=== PATIENT | female | born 1990 | race Caucasian/White ===

== ENCOUNTER 2016-12-26 07:23 | Emergency (ER) | payer MEDICAID, OTHER ==
[~2016-12-26] VITALS: Ht 157.5 cm; Wt 58.5 kg
[~2016-12-26 07:23] MED LIST: FERR28TA PO; NITR-58 PO; PREN-39 PO
[2016-12-26 07:26] VITALS: Ht 157.5 cm; Wt 58.5 kg
--- NOTE | 2016-12-26 08:21 | ERD ---
ER Documentation Chief Complaint Chief Complaint r side flank pain HPI 26-year-old female presenting with a chief complaint of back pain 1 week. Worse today. Patient has had similar symptoms in the past and was diagnosed with a kidney infection while 2 years ago. Denies fever, chills, dysuria, hematuria, trauma, RPND, urinary incontinence, nausea, vomiting, flank pain or radiation of pain. Patient has no other complaints and describes no other associated manifestations. Nursing notes have been reviewed and are consistent with history given. ROS All systems reviewed and are negative except as per history of present illness. Medications Home Meds Active Scripts Phenazopyridine Hcl* (Pyridium*) 100 Mg Tab, 100 MG PO TID for 3 Days, TAB Prov:ANDRY JOYNER PA-C 12/26/16 Nitrofurantoin Monohyd Macrocr* (Macrobid*) 100 Mg Capsr, 100 MG PO BID for 5 Days, CAP Prov:ANDRY JOYNER PA-C 12/26/16 Reported Medications Nitrofurantoin Monohyd Macrocr (Macrobid) 100 Mg Capsr, 100 MG PO BID 05/27/13 Ferrous Sulfate (Ferrous Sulfate) 1 Tab Tablet, 1 TAB PO DAILY 05/27/13 Vits W-Ca,Fe,Fa(<1MG) ( Vitamins) 1 Tab Tablet, 1 TAB PO DAILY 05/27/13 Allergies Allergies: Coded Allergies: No Known Allergies (Verified Allergy, Unknown, 12/26/16) PMhx/Soc Medical and Surgical Hx: pt denies Medical Hx, pt denies Surgical Hx Hx Alcohol Use: Yes (occ.) Hx Substance Use: No Hx Tobacco Use: No Physical Exam Vitals Vital Signs Date Time Temp Pulse Resp B/P Pulse Ox O2 Delivery O2 Flow Rate FiO2 12/26/16 07:26 97.5 89 18 128/70 99 Physical Exam Const: 18-year-old female no acute distress. Head: Atraumatic Eyes: Normal Conjunctiva ENT: Normal External Ears, Nose and Mouth. Neck: Full range of motion..~ No meningismus. Resp: Clear to auscultation bilaterally Cardio: Regular rate and rhythm, no murmurs Abd: Moderate suprapubic tenderness. Soft, non tender, non distended. Normal bowel sounds. No McBurney's point tenderness. Skin: No petechiae or rashes Back: No midline, flank, or CVA tenderness. Ext: No cyanosis, or edema Neur: Awake and alert Psych: Normal Mood and Affect Results 24 hrs Laboratory Tests Test 12/26/16 08:31 Bedside Urine pH (LAB) 6.5 Bedside Urine Protein (LAB) Negative Bedside Urine Glucose (UA) Negative Bedside Urine Ketones (LAB) Negative Bedside Urine Blood Negative Bedside Urine Nitrite (LAB) Positive Bedside Urine Leukocyte Esterase (L Trace Procedures/MDM Patient was evaluated and worked up for back pain and suprapubic tenderness as described in the history and physical exam. Workup included urinalysis and urine . Urine was negative. Urinalysis showed positive leukocyte esterase and positive nitrites. Most likely diagnosis is cystitis. Patient will be treated outpatient with Macrobid and Pyridium. At this time I do not suspect pyelonephritis, ovarian torsion, tubo-ovarian abscess, ectopic , mechanical obstruction, hernia, appendicitis, intestinal ischemia, PID, AAA, or diverticulitis. The patient is well appearing, and tolerates PO. I have spoke with the patient regarding their condition and future management. They have verbally responded that they understand their status and treatment plan. The patients vitals are stable, and their current condition is appropriate for discharge. The patient will be given discharge instructions with return precautions. Departure Diagnosis: Primary Impression: Cystitis Condition: Stable Additional Instructions: Follow up with your PCP within the next 1-3 days for a more thorough evaluation and a possible referral to a specialist. Return the the emergency department immediately if symptoms worsen or change. If you have any questions regarding medications, ask your pharmacist or us before you leave. If any adverse reactions occur while taking your medications, discontinue the treatment and return to the emergency department immediately. Take your medications as directed, and complete the entire course of treatment. ANDRY JOYNER PA-C Dec 26, 2016 08:21
[2016-12-26 08:29] LABS: URINE BLOOD (Dip) POC Negative (NEGATIVE)
[2016-12-26] MEDS ORDERED: NITR-58 PO (09:35)
[2016-12-26] MEDS ORDERED: PHEN-537 PO (09:35)
== END 2016-12-26 09:40 | disposition home or self-care (01) ==
LOC: FTE 07:23
DX: N30.90 Cystitis, unspecified without hematuria (principal)
CPT/HCPCS: 81003; Z7502; 99283